=== PATIENT | female | born 1985 | race American Indian/Alaskan Native ===

== ENCOUNTER 2017-09-23 01:45 | Emergency (ER) | payer SELFPAY ==
--- NOTE | 2017-09-23 02:23 | EDM.PDOC ---
ED HPI GENERAL MEDICAL PROBLEM - General Chief Complaint: General Stated Complaint: FEVER Time Seen by Provider: 09/23/17 02:13 Source of Information: Reports: Patient History Limitations: Reports: No Limitations - History of Present Illness INITIAL COMMENTS - FREE TEXT/NARRATIVE: Star is a 32 year old female who presents to the ED with very vague generalized complaints of not feeling well. She reports that all day today she has felt poorly. Reports that she has a headache and generalized body aches. She reports she has been hot and cold today. Was unable to check her temperature at home. Temp at ED 99.7 deg F. She reports she took 2 ibuprofen at midnight. She has been taking ibuprofen today without relief. She report she has been coughing and she has a sore throat. Reports she has been eating and drinking per normal. Does report she feels somewhat SOB. Reports she had some nausea earlier today. Does c/o dizziness, generalized weakness, fatigue. Denies any chest pain, abdominal pain, vomiting, diarrhea, neuro changes. She does have some sensitivity to light. Denies any history of migraines. She reports she has some epigastric pain. Denies any known history of GERD. She denies any significant PMH. She is a smoker. Smokes 1 pdd. She does smell heavily of smoke at the time of presentation. Denies any drug or alcohol use. Onset: Today Onset Date: 09/23/17 Duration: Getting Worse Location: Reports: Head, Generalized Quality: Reports: Ache Severity: Severe Improves with: Reports: Medication Associated Symptoms: Reports: Chest Pain, Cough, cough w sputum, Fever/Chills, Headaches, Malaise, Nausea/Vomiting (nausea, no vomiting), Shortness of Breath, Weakness. Denies: Confusion, Diaphoresis, Loss of Appetite, Rash, Seizure, Syncope Treatments STONER HAND: Reports: NSAIDS Headache Pain Score (Numeric/FACES): 10 - Related Data Allergies Allergy/AdvReac Type Severity Reaction Status Date / Time No Known Allergies Allergy Verified 09/23/17 01:49 Home Meds: Home Meds Cefuroxime Axetil [Cefuroxime] 250 mg PO BID 5 Days #10 tablet 09/23/17 [Rx] predniSONE [Prednisone] 20 mg PO DAILY 5 Days #5 tablet 09/23/17 [Rx] Past Medical History - Past Health History Medical/Surgical History: Denies Medical/Surgical History Social & Family History - Family History Family Medical History: Noncontributory - Tobacco Use Smoking Status *Q: Current Every Day Smoker Years of Tobacco use: 15 Packs/Tins Daily: 0.5 ED ROS GENERAL - Review of Systems Review Of Systems: See Below Constitutional: Reports: Fever, Chills, Malaise, Weakness, Fatigue. Denies: Decreased Appetite HEENT: Reports: Throat Pain, Throat Swelling. Denies: Dental Pain, Ear Pain, Eye Pain, Rhinitis, Vision Change Respiratory: Reports: Shortness of Breath, Cough, Sputum. Denies: Wheezing, Pleuritic Chest Pain, Hemoptysis Cardiovascular: Reports: Chest Pain, Lightheadedness. Denies: Dyspnea on Exertion, Edema, Palpitations, Syncope Endocrine: Reports: Fatigue GI/Abdominal: Reports: Nausea. Denies: Abdominal Pain, Bloody Stool, Constipation, Diarrhea, Decreased Appetite, Vomiting : Denies: Dysuria, Frequency, Urgency Musculoskeletal: Denies: Neck Pain, Back Pain Skin: Reports: No Symptoms Neurological: Reports: Dizziness, Headache, Weakness. Denies: Confusion, Numbness, Paresthesia, Syncope, Tingling, Tremors, Trouble Speaking, Difficulty Walking, Change in Speech Psychiatric: Reports: No Symptoms Hematologic/Lymphatic: Reports: No Symptoms Immunologic: Reports: No Symptoms ED EXAM, GENERAL - Physical Exam Exam: See Below Exam Limited By: No Limitations General Appearance: Alert, WD/WN, Anxious, Mild Distress Eye Exam: Bilateral Eye: EOMI, Normal Fundi, Normal Inspection, PERRL Ears: Normal External Exam, Normal Canal, Hearing Grossly Normal, Normal TMs Nose: Normal Inspection, Normal Mucosa, No Blood Throat/Mouth: Normal Voice, No Airway Compromise, Dysphagia, Inflammation ( tonsils) Head: Atraumatic, Normocephalic Neck: Supple, Non-Tender, Full Range of Motion, Lymphadenopathy (L), Lymphadenopathy (R) Respiratory/Chest: No Respiratory Distress, No Accessory Muscle Use, Decreased Breath Sounds, Crackles Cardiovascular: Normal Peripheral Pulses, Regular Rate, Rhythm, No Edema, No Gallop, No JVD, No Murmur, No Rub GI/Abdominal: Normal Bowel Sounds, Soft, Non-Tender, No Organomegaly, No Distention, No Abnormal Bruit, No Mass Back Exam: Normal Inspection, Full Range of Motion. No: CVA Tenderness (L), CVA Tenderness (R) Extremities: Normal Inspection, Normal Range of Motion, Non-Tender, Normal Capillary Refill, No Pedal Edema Neurological: Alert, Oriented, CN II-XII Intact, Normal Cognition, Normal Gait, Normal Reflexes, No Motor/Sensory Deficits Psychiatric: Anxious Skin Exam: Warm, Dry, Intact, Normal Color, No Rash Lymphatic: Adenopathy (anterior cervical) Course - Vital Signs Last Recorded V/S: Last Vital Signs Temp 99.7 F 09/23/17 01:57 Pulse 96 09/23/17 01:57 Resp 18 09/23/17 01:57 BP 112/78 09/23/17 01:57 Pulse Ox 99 09/23/17 01:57 - Orders/Labs/Meds Labs: Laboratory Tests 09/23/17 09/23/17 09/23/17 Range/Units 02:05 02:05 02:05 WBC 12.1 H 12.3 H (5.0-10.0) 10^3/uL RBC 5.01 4.99 (4.00-5.50) 10^6/uL Hgb 13.8 13.7 (12.0-16.0) g/dL Hct 41.4 41.4 (37.0-47.0) % MCV 82.6 83.0 (82.0-94.0) fL MCH 27.5 27.5 (27.0-32.0) pg MCHC 33.3 33.1 (33.0-38.0) g/dL RDW Coeff of Jayy 13.9 13.9 (11.0-15.0) % Plt Count 302 313 (150-400) 10^3/uL MPV 9.0 fL Neut % (Auto) 70.9 (35-85) % Lymph % (Auto) 20.4 (10-55) % [place] % (Auto) 6.5 (0-16) % Eos % (Auto) 1.4 (0-5) % Baso % (Auto) 0.8 (0-3) % Neut # (Auto) 8.71 H (1.80-7.00) 10^3/uL Lymph # (Auto) 2.50 (1.00-4.80) 10^3/uL [place] # (Auto) 0.80 (0.00-0.80) 10^3/uL Eos # (Auto) 0.17 (0.00-0.45) 10^3/uL Baso # (Auto) 0.10 10^3/uL D-Dimer, Quantitative (0.00-0.50) Sodium 140 (136-145) mEq/L Potassium 3.5 (3.5-5.0) mEq/L Chloride 104 (98-106) mEq/L Carbon Dioxide 24 (21-32) mmol/L BUN 11 (7-18) mg/dL Creatinine 0.9 (0.6-1.0) mg/dL Est Cr Clr Drug Dosing 78.93 mL/min Estimated GFR (MDRD) > 60 (>=60) mL/min Glucose 109 H (75-99) mg/dL Calcium 8.2 L (8.4-10.1) mg/dL Total Bilirubin 0.3 (0.0-1.0) mg/dL AST 22 (15-37) U/L ALT 60 (12-78) U/L Alkaline Phosphatase 115 (46-116) U/L C-Reactive Protein 4.2 H (0.2-0.8) mg/dL Total Protein 7.5 (6.4-8.2) g/dL Albumin 3.6 (3.4-5.0) g/dL HCG, Qual Urine Color (YELLOW) Urine Appearance (CLEAR) Urine pH (4.5-8.0) Ur Specific [place] (1.003-1.020) Urine Protein (NEGATIVE) mg/dL Urine Glucose (UA) (NEGATIVE) mg/dL Urine Ketones (NEGATIVE) mg/dL Urine Occult Blood (NEGATIVE) Urine Nitrite (NEGATIVE) Urine Bilirubin (NEGATIVE) Urine Urobilinogen (0.2-1.0) EU/dL Ur Leukocyte Esterase (NEGATIVE) Urine RBC (0-5) /HPF Urine WBC (0-5) /HPF Ur Squamous Epith Cells (NOT SEEN) /HPF 09/23/17 09/23/17 09/23/17 Range/Units 02:10 02:21 02:35 WBC (5.0-10.0) 10^3/uL RBC (4.00-5.50) 10^6/uL Hgb (12.0-16.0) g/dL Hct (37.0-47.0) % MCV (82.0-94.0) fL MCH (27.0-32.0) pg MCHC (33.0-38.0) g/dL RDW Coeff of Jayy (11.0-15.0) % Plt Count (150-400) 10^3/uL MPV fL Neut % (Auto) (35-85) % Lymph % (Auto) (10-55) % [place] % (Auto) (0-16) % Eos % (Auto) (0-5) % Baso % (Auto) (0-3) % Neut # (Auto) (1.80-7.00) 10^3/uL Lymph # (Auto) (1.00-4.80) 10^3/uL [place] # (Auto) (0.00-0.80) 10^3/uL Eos # (Auto) (0.00-0.45) 10^3/uL Baso # (Auto) 10^3/uL D-Dimer, Quantitative 0.32 (0.00-0.50) Sodium (136-145) mEq/L Potassium (3.5-5.0) mEq/L Chloride (98-106) mEq/L Carbon Dioxide (21-32) mmol/L BUN (7-18) mg/dL Creatinine (0.6-1.0) mg/dL Est Cr Clr Drug Dosing mL/min Estimated GFR (MDRD) (>=60) mL/min Glucose (75-99) mg/dL Calcium (8.4-10.1) mg/dL Total Bilirubin (0.0-1.0) mg/dL AST (15-37) U/L ALT (12-78) U/L Alkaline Phosphatase (46-116) U/L C-Reactive Protein (0.2-0.8) mg/dL Total Protein (6.4-8.2) g/dL Albumin (3.4-5.0) g/dL HCG, Qual Negative Urine Color Yellow (YELLOW) Urine Appearance Clear (CLEAR) Urine pH 6.5 (4.5-8.0) Ur Specific [place] 1.015 (1.003-1.020) Urine Protein 30 H (NEGATIVE) mg/dL Urine Glucose (UA) Negative (NEGATIVE) mg/dL Urine Ketones Negative (NEGATIVE) mg/dL Urine Occult Blood Negative (NEGATIVE) Urine Nitrite Negative (NEGATIVE) Urine Bilirubin Negative (NEGATIVE) Urine Urobilinogen 0.2 (0.2-1.0) EU/dL Ur Leukocyte Esterase Negative (NEGATIVE) Urine RBC Not seen (0-5) /HPF Urine WBC Not seen (0-5) /HPF Ur Squamous Epith Cells Few H (NOT SEEN) /HPF Meds: Medications Discontinued Medications Generic Name Dose Route Start Last Admin Trade Name Tucker PRN Reason Stop Dose Admin Ceftriaxone Sodium 1 gm 09/23/17 03:15 09/23/17 03:28 Rocephin IVPUSH 1 gm Q24H AMY Administration Sodium Chloride 1,000 mls @ 999 mls/hr 09/23/17 02:25 09/23/17 02:58 Normal Saline IV 09/23/17 03:25 999 mls/hr .BOLUS ONE Administration Ketorolac Tromethamine 30 mg 09/23/17 02:25 09/23/17 03:00 Toradol IVPUSH 09/23/17 02:26 30 mg ONETIME ONE Administration Methylprednisolone Sodium Succinate 62.5 mg 09/23/17 03:28 09/23/17 03:32 Solu-Medrol IVPUSH 09/23/17 03:29 62.5 mg NOW STA Administration - Re-Assessments/Exams Free Text/Narrative Re-Assessment/Exam: 09/23/17 03:20 CXR negative for infiltrate or acute. Departure - Departure Time of Disposition: 03:30 Disposition: Home, Self-Care 01 Condition: Good Clinical Impression: Fever, Tonsillitis - Discharge Information Prescriptions: Cefuroxime Axetil [Cefuroxime] 250 mg PO BID 5 Days #10 tablet predniSONE [Prednisone] 20 mg PO DAILY 5 Days #5 tablet Instructions: Tonsillitis, [id number], Fever, Adult Referrals: Provider,Unknown [Ordering Only Provider] - Forms: ED Department Discharge Additional Instructions: Ceftin twice daily for 5 days. Start tomorrow 09/23/2017. Script will be at pharmacy. Prednisone daily x 5 days Tylenol or ibuprofen as needed for fever/headache Recommend smoking cessation Follow up in clinic Saturday for a recheck. Call to make appointment - Problem List & Annotations (1) Fever and neutropenia SNOMED Code(s): 474446510 Code(s): D70.9 - NEUTROPENIA, UNSPECIFIED; R50.81 - FEVER PRESENTING WITH CONDITIONS CLASSIFIED ELSEWHERE Status: Acute (2) Generalized weakness SNOMED Code(s): 28978196 Code(s): R53.1 - WEAKNESS Status: Acute (3) Tonsillitis SNOMED Code(s): 41776423 Code(s): J03.90 - ACUTE TONSILLITIS, UNSPECIFIED Status: Acute - Problem List Review Problem List Initiated/Reviewed/Updated: Yes
[2017-09-23] MEDS ORDERED: Ketorolac 30 MG/ML SDV IVPUSH ONE (02:25)
[2017-09-23] MEDS ORDERED: Sodium Chloride 0.9% 1,000 ML IV ONE (02:25)
[2017-09-23 02:33] LABS: CHLORIDE,CL 104 mEq/L (98-106); SODIUM,NA 140 mEq/L (136-145)
[2017-09-23] MEDS ORDERED: cefTRIAXone 1 GM Vial IVPUSH SCH (03:15)
[2017-09-23] MEDS ORDERED: methylPREDNISolone Sodium Succinate 125 MG/2 ML SDV IVPUSH STA (03:28)
== END 2017-09-23 04:00 | disposition home or self-care (01) ==
LOC: CC.ED 01:45
DX: J03.90 Acute tonsillitis, unspecified (principal); F17.210 Nicotine dependence, cigarettes, uncomplicated
CPT/HCPCS: 36415; 71046; 80053; 81001; 84703; 85025; 85027; 85379; 86140; 87040; 87430; 87804; 96361; 96374; 96375; 99283; J0696; J1885; J2930; J7030

== ENCOUNTER 2018-07-30 19:52 | Emergency (ER) | payer SELFPAY ==
[2018-07-30] MEDS ORDERED: Amoxicillin/Clavulanate K 875-125 MG Tab PO ONE (19:53)
[2018-07-30] MEDS ORDERED: traMADol 50 MG Tab PO ONE (19:53)
[2018-07-30] MEDS ORDERED: Ketorolac 60 MG/2 ML SDV ONE (20:11)
[2018-07-30] MEDS ORDERED: Ketorolac 60 MG/2 ML SDV IM ONE (20:20)
[2018-07-30] MEDS ORDERED: Take Home: Amoxicillin/Clavulanate K 875-125 MG Tab, 2 Tab Pack PO ONE (20:21)
--- NOTE | 2018-07-30 20:25 | EDM.PDOC ---
ED HPI GENERAL MEDICAL PROBLEM - General Chief Complaint: General Stated Complaint: toothache Time Seen by Provider: 07/30/18 20:10 Source of Information: Reports: Patient History Limitations: Reports: No Limitations - History of Present Illness INITIAL COMMENTS - FREE TEXT/NARRATIVE: Patient presents to ER with complaints of left lower tooth pain. She states started this afternoon. Has not talked to a dentist. Has not seen a dentist in quite some time. States has anxiety related to that. Did see one years ago for this tooth as it is broke off but she states "they wouldn't put me to sleep so I wouldn't let them pull it out". She has tried tylenol for the pain without relief. No facial swelling but cheek is tender. 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 Currently on no medications. Left Face/Facial Pain Score (Numeric/FACES): 10 - Related Data Allergies Allergy/AdvReac Type Severity Reaction Status Date / Time No Known Allergies Allergy Verified 07/30/18 19:56 Home Meds: Home Meds Amoxicillin/Potassium Clav [Augmentin 875-125 Tablet] 1 each PO BID #20 tablet 07/30/18 [Rx] Past Medical History - Past Health History Medical/Surgical History: Denies Medical/Surgical History Social & Family History - Family History Family Medical History: Noncontributory - Tobacco Use Smoking Status *Q: Current Every Day Smoker Years of Tobacco use: 15 Packs/Tins Daily: 1 ED ROS GENERAL - Review of Systems Review Of Systems: See Below Constitutional: Denies: Fever, Chills, Malaise, Weakness HEENT: Reports: Dental Pain Respiratory: Denies: Shortness of Breath, Cough Cardiovascular: Denies: Chest Pain, Edema, Lightheadedness Endocrine: Denies: Fatigue GI/Abdominal: Reports: No Symptoms : Reports: No Symptoms Musculoskeletal: Reports: No Symptoms Skin: Reports: No Symptoms ED EXAM, GENERAL - Physical Exam Exam: See Below Exam Limited By: No Limitations General Appearance: Alert, WD/WN, No Apparent Distress Ears: Normal External Exam, Normal TMs Nose: Normal Inspection, Normal Mucosa, No Blood Throat/Mouth: Other (poor dentition. Left lower molar is broken to the base. Tender) Head: Normocephalic Neck: Normal Inspection, Supple, Non-Tender Respiratory/Chest: No Respiratory Distress, Lungs Clear, Normal Breath Sounds Cardiovascular: Regular Rate, Rhythm Neurological: Alert, Oriented Skin Exam: Warm, Dry Course - Vital Signs Last Recorded V/S: Last Vital Signs Temp 98.2 F 07/30/18 20:00 Pulse 63 07/30/18 20:00 Resp 18 07/30/18 20:00 BP 137/83 07/30/18 20:00 Pulse Ox 18 L 07/30/18 20:00 Departure - Departure Time of Disposition: 20:26 Disposition: Home, Self-Care 01 Condition: Good Clinical Impression: Infection of tooth - Discharge Information *PRESCRIPTION DRUG MONITORING PROGRAM REVIEWED*: No *COPY OF PRESCRIPTION DRUG MONITORING REPORT IN PATIENT KELLI: No Referrals: PCP,None [Primary Care Provider] - Additional Instructions: 1. Ice to cheek 2. Ibuprofen 600 mg with one 500 mg of tylenol for pain 3. May use tramadol 50 mg for more severe pain 4. Contact dentist for further care
[2018-07-30] MEDS ORDERED: Take Home: traMADol 50 MG, 4 Tab Pack PO ONE (20:27)
== END 2018-07-30 20:40 | disposition home or self-care (01) ==
LOC: CC.ED 19:52
DX: K04.7 Periapical abscess without sinus (principal); F17.210 Nicotine dependence, cigarettes, uncomplicated
CPT/HCPCS: 96374; 99282; A9270-GY; J1885